=== PATIENT | female | born 1990 | race Caucasian/White ===

== ENCOUNTER 2017-02-22 13:14 | Outpatient (CLI) | payer OTHER ==
[~2017-02-22] VITALS: Ht 172.7 cm; Wt 103.8 kg
[~2017-02-22 13:14] MED LIST: FERR325C PO; PREN1TAB49 PO
[2017-02-22] MEDS ORDERED: FAMO20TA18 PO (13:45)
[2017-02-22 13:47] VITALS: BP 121/69; PULSE 90; RESP 18
--- NOTE | 2017-02-22 15:16 | RADRPT ---
PROCEDURE: US biophysical profile. CLINICAL INDICATION: Small for gestational age. TECHNIQUE: Multiple sonographic images of the uterus were obtained. The images were revi ewed on a PACS workstation. COMPARISON: No prior studies are available for comparison. FINDINGS: There is a single live intrauterine gestation. heart rate is 137 beats per minute. The position is cephalic. The placenta is anterior left grade II with no abruption or previa. The ALEJANDRA is 10.3 cm. (Normal = 5-20 cm.) Breathing Movement: 2 Gross Body Movement: 2 Tone: 2 Qualitative Amniotic Fluid Volume: 2 TOTAL: 8 IMPRESSION: 1. The biophysical score is 8/8. RPTAT: QQ .Iban Clemens MD, MD Date Time Electronically viewed and signed by .Iban Clemens MD, on 02/22/2017 15:16 .R/
--- NOTE | 2017-02-22 17:10 | CONS ---
Date/Time of Note Date/Time of Note DATE: 02/22/17 TIME: 17:05 Consultation Date/Type/Reason Admit Date/Time February 22, 2017 OB triage consult Reason for Consultation This patient is a 26 years old 4 para 3 old 3 deliveries by section. Her estimated date of confinement is 03/12/2017 which makes her 37 weeks and 3 days. She came to triage for possible intrauterine growth retardation and for evaluation of the condition of the fetus by NST and biophysical profile. On examining here she is a well-developed well-nourished patient. Her general vital signs are within normal limits with blood pressure 121/69, pulse rate of 70, respiration 15, temperature 97.8, and oxygen saturation at room temperature of 96%. Constitutional: chills, diaphoresis, disoriented, febrile, improved, no complaints, other, poor po, requiring IVF, requiring O2 Eyes: discharge, no complaints, other, pain, redness, visual change ENT: bleeding, congestion, discharge, dysphagia, no complaints, other, pain, sore throat Respiratory: cough, no complaints, other, pain, pleuritic pain, shortness of breath, sputum, wheezing Cardiovascular: chest pain, edema, lightheadedness, no complaints, orthopenea, other, palpitations, paroxysmal nocturnal dyspnea Gastrointestinal: blood, constipation, decreased appetite, diarrhea, flatus, nausea, no complaints, other, pain, passing stool, vomiting Genitourinary: bleeding, discharge, dysuria, flank pain, hematuria, no complaints, other (Pelvic exam was not performed because she did not have any contractions) Musculoskeletal: No back pain, No bone/joint pain, No neck pain, No no complaints, No other, No restricted range of motion, No swelling Skin: No bruising, No erythema, No laceration, No no complaints, No other, No pruritis, No rash, No skin lesions Neurologic: other (Knee-jerk reflexes are normal), No confusion, No dizziness, No focal-weakness, No headache, No no complaints , No seizure, No syncope Endocrine: No dry skin, No no complaints, No other, No polydypsia, No polyuria , No temp intolerance Lymphatic: No adenopathy, No lymphadema, No no complaints, No other, No tender nodes Additional Comments On ultrasound study the report is a single live intrauterine gestation with heart rate 137 bpm in vertex presentation placenta was anterior ,amniotic fluid index was reported 10.3 cm ,the biophysical profile was 8/8. With these positive finding patient was discharged home and she will undergo section soon Social History Smoking Status: Never smoker Exam/Review of Systems Vital Signs Vitals Vital Signs Date Time Temp Pulse Resp B/P Pulse Ox O2 Delivery O2 Flow Rate FiO2 02/22/17 13:47 97.8 90 18 121/69 96 Room Air AGUSTO SALGUERO MD Feb 22, 2017 17:10 AGUSTO SALGUERO MD Feb 22, 2017 17:10
--- NOTE | 2017-02-22 17:31 | TRIAGE ---
OB Triage Datetime Report Generated by CPN: 02/22/2017 17:30 Datetime: 02/22/2017 16:40 Labor Evaluation Frequency: 0 Monitor Mode: External Pattern: Normal: <= 5 Contractions in 10 Minutes Resting Tone [place]: Relaxed Heart Rate FHR Baseline Rate: 135 Monitor Mode: External US FHR Baseline Changes: No Baseline Change Variability: Moderate 6-25 bpm Accelerations: 15X15 Decelerations: None Category: Category I Datetime: 02/22/2017 15:44 Labor Evaluation Frequency: x2 Monitor Mode: External Duration (sec)2399: 40-70 Quality: Mild Pattern: Normal: <= 5 Contractions in 10 Minutes Resting Tone [place]: Relaxed Contraction Comments: PT DOES NOT FEEL CTX Heart Rate FHR Baseline Rate: 135 Monitor Mode: External US FHR Baseline Changes: No Baseline Change Variability: Moderate 6-25 bpm Accelerations: 15X15 Decelerations: None Category: Category I Datetime: 02/22/2017 14:38 Maternal Assessment Level of Consciousness: Fully Conscious Headache: Denies Blurred Vision: No Nausea/Vomiting: Denies RUQ Epigastric Pain: Denies Facial Edema: None Labor Evaluation Frequency: x3 Monitor Mode: External Duration (sec)2399: 50-70 Quality: Mild Pattern: Normal: <= 5 Contractions in 10 Minutes Resting Tone [place]: Relaxed Heart Rate FHR Baseline Rate: 140 Monitor Mode: External US FHR Baseline Changes: No Baseline Change Variability: Moderate 6-25 bpm Accelerations: 15X15 Decelerations: Variable Comments: Vx1 Pain Assessment Pain Scale: 0 Pain Presence: None/Denies Pain Type: N/A Datetime: 02/22/2017 13:42 Time of Arrival: 02/22/2017 13:10 EGA: 37.3 Arrived By: Ambulatory Arrived From: Dr. Mcrae Chief Complaint: IUGR - ORDERS FOR NST/BPP Movement: Present Contractions: Denies/Absent Rupture of Membranes: Denies Vaginal Bleeding: None Vaginal Discharge: Denies Recent Sexual Intercouse: Denies Abdominal Trauma: Not Applicable Patient Complaints: Other Time Provider Notified: 02/22/2017 16:30 Provider Notified: DR. GUEVARA Initial Plan: EFM x2, BPP Datetime: 02/22/2017 13:38 Stage of : OB Triage Assessment Type: Triage Maternal Assessment Level of Consciousness: Fully Conscious Headache: Denies Blurred Vision: No Respiratory Effort: Unlabored; Regular Rhythm; Equal Expansion Breath Sounds, Left: Clear and Equal Breath Sounds, Right: Clear and Equal Nausea/Vomiting: Denies RUQ Epigastric Pain: Denies Lower Extremities Edema: Bilateral Lower Extremities Degree: 1+ Upper Extremities Edema: None Degree: None Facial Edema: None Temperature Route: Oral Fall Risk Assessment History of Falling: (0) No Secondary Diagnosis: (0) No Ambulatory Aid: (0) Bedrest/Nurse Assist IV Therapy: (0) No Gait: (0) Normal/Bedrest/Immobile Mental Status: (0) Oriented to Own Ability Fall Score: 0 Fall Risk Score Definition: No Risk: No action required Pain Assessment Pain Scale: 0 Pain Presence: None/Denies Pain Type: N/A
== END 2017-02-22 17:00 | disposition home or self-care (01) ==
LOC: OBT 13:14 → L-D 13:17 → OBT 17:00
PROVIDERS: ATTEND Obstetrics & Gynecology
DX: O41.93X0 Disorder of amniotic fluid and membranes, unspecified, third trimester, not applicable or unspecified (principal); O34.219 Maternal care for unspecified type scar from previous cesarean delivery; Z3A.37 37 weeks gestation of pregnancy
CPT/HCPCS: 76818; Z7500; G0463

== ENCOUNTER 2017-02-23 15:02 | Inpatient (IN) | payer OTHER ==
[~2017-02-23] VITALS: Ht 167.6 cm; Wt 109.9 kg
[~2017-02-23 15:02] MED LIST changes: +FAMO20TA18 PO
[2017-02-23] MEDS ORDERED: METHYLERGONOVINE 0.2 MG INJ IM PRN (15:30)
[2017-02-23] MEDS ORDERED: MISOPROSTOL 200 MCG TAB PR PRN (15:30)
[2017-02-23] MEDS ORDERED: CARBOPROST 250 MCG INJ IM PRN (15:30)
[2017-02-23] MEDS ORDERED: OXYTOCIN 30 UNITS/LR 500 ML IV SCH (15:30)
[2017-02-23] MEDS ORDERED: OXYTOCIN 30 UNITS/LR 500 ML IV PRN (15:30)
[2017-02-23] MEDS ORDERED: CEFAZOLIN 2 GM/50 ML (PMX) 50 ML IV SCH (15:30)
[2017-02-23 15:50] VITALS: Ht 167.6 cm; Wt 109.9 kg
[2017-02-23 15:51] VITALS: BP 125/74; PULSE 78; RESP 17
[2017-02-23 15:53] LABS: BASOPHILS % 0.3 % (0.0-2.0); EOSINOPHILS # 0.1 10^3/ul (0.0-0.5); EOSINOPHILS % 0.8 % (0.0-7.0); HEMATOCRIT 38.5 % (37.0-47.0); HEMOGLOBIN 13.3 g/dl (12.0-16.0); LYMPHOCYTES # 2.6 10^3/ul (0.8-2.9); LYMPHOCYTES % 23.2 % (15.0-51.0); MEAN CORPUSCULAR HEMOGLOBIN 28.4 pg (29.0-33.0); MEAN CORPUSCULAR HGB CONC 34.5 g/dl (32.0-37.0); MEAN CORPUSCULAR VOLUME 82.1 fl (82.0-101.0); MEAN PLATELET VOLUME 10.5 fl (7.4-10.4); MONOCYTE # 0.9 10^3/ul (0.3-0.9); MONOCYTES % 7.6 % (0.0-11.0); NEUTROPHIL # 7.6 10^3/ul (1.6-7.5); NEUTROPHILS % 67.5 % (39.0-77.0); PLATELET COUNT 320 10^3/UL (140-415); RED BLOOD COUNT 4.69 10^6/ul (4.20-5.40); RED CELL DISTRIBUTION WIDTH 13.3 % (11.5-14.5); WHITE BLOOD COUNT 11.3 10^3/ul (4.8-10.8)
[2017-02-23 16:14] LABS: INR 0.94; PROTIME 12.6 Sec (12.2-14.2)
[2017-02-23] MEDS: LACTATED RINGER'S 1,000 ML IV SCH ×2 (16:39→17:28)
[2017-02-23 16:47] LABS: PARTIAL THROMBOPLASTIN TIME 31.8 Sec (25.0-35.0)
[2017-02-23] MEDS ORDERED: LACTATED RINGER'S 1,000 ML IV ONE (17:05)
[2017-02-23] MEDS ORDERED: FAMOTIDINE 20 MG INJ IV ONE (17:30)
[2017-02-23] MEDS ORDERED: CITRIC ACID/NA CITRATE 30 ML CUP PO ONE (17:30)
[2017-02-23] MEDS ORDERED: METOCLOPRAMIDE 10 MG INJ IV ONE (17:30)
[2017-02-24] MEDS: LACTATED RINGER'S 1,000 ML IV SCH ×4 (02:07→22:19)
[2017-02-24] MEDS ORDERED: morphine SULFATE/PF (10 MG/10 ML) INJ ONE (14:24)
[2017-02-24] MEDS ORDERED: FENTAnyl 50 MCG/ML VIAL ONE (14:24)
[2017-02-24] MEDS ORDERED: PHENYLephrine (100 MCG/ML) 5ML SYG ONE ×2 (14:24→14:48)
[2017-02-24] MEDS ORDERED: DEXAMETHASONE 4 MG/ML 1 ML INJ ONE (14:37)
[2017-02-24] MEDS ORDERED: ONDANSETRON 4 MG INJ ONE (14:37)
--- NOTE | 2017-02-24 16:00 | HP ---
Date/Time of Note Date/Time of Note Late entry DATE: 02/23/17 OB - History Hx of Present Free Text/Dictation Admitted at 37+ weeks for repeat . Perinatologist recommendation because of abdominal circumference less than 3rd percentile Last Menstrual Period: Jun 05, 2016 Estimated Due Date: Mar 12, 2017 : 4 Para: 3 Care: Good Care Ultrasounds: Normal mid trimester US Obstetrical Complications: Growth Restriction Medical Complications: None, Other (Previous 3) Past Family/Social History * Past Medical, Surgical, Family and Obstetric Histories reviewed from chart. Blood Type: O+ Rubella: immune RPR/VDRL: Negative GBS Status: Negative HBsAG: Negative OB Admission Exam Vital Signs Vital Signs Vital Signs Date Time Temp Pulse Resp B/P Pulse Ox O2 Delivery O2 Flow Rate FiO2 02/23/17 15:51 98.1 78 17 125/74 Room Air Physical Exam HEENT: WNL Heart: Rhythm Normal Lungs: Clear, Equal Abdomen: WNL Extremities: Normal Reflexes: Normal Cervical Dilatation: None Effacement: 0% Station: -3 Membranes: Intact Heart Rate: 140's Decelerations: No Decelerations Varibility: Marked Contractions on Admission: None Last 72 hours Lab Results CBC & BMP 02/23/17 15:30 OB Assessment/Plan Reason for admission: section Other Assessment: 37+ weeks gestation Previous 3 Perinatologist recommended delivery Other plan: Repeat BRUNO ARSHAD MD Feb 24, 2017 16:00
--- NOTE | 2017-02-24 16:03 | OPR ---
Operative Report Planned Procedure Procedure date Feb 24, 2017 Procedure(s) Repeat section Performed by: BRUNO ARSHAD MD Assisting provider: MARLA VILLELA MD Anesthesiologist: SVITLANA BARRETO DO Pre-procedure diagnosis 37+ weeks gestation previous 3 Growth restricted infant Anesthesia Type: spinal Procedure Description Under satisfactory anaesthesia a Pfannenstiel incision was made two fingerbreadth above and parallel to the symphysis of pubis around the previous scar and previous scar was removed Incision was extended laterally to the border of the Recti muscles on either sides. Incision was carried down with sharp and blunt dissection until fascia was reached. Anterior Recti muscle fascia was incised in mid portion and incision extended laterally to the border of skin incision. Fascia was mobilized from muscle superiorly and Recti muscles were from midline using sharp and blunt dissection. Peritoneum was visualized; Avoiding bowel and bladder it was incised . Incision was extended superiorly and inferiorly. Bladder blade was placed. Posterior peritoneum covering the lower segment of the uterus and lower segment of the uterus were incised.Low transverse uterine incision was made on lower segment of the uterus. Incision extended laterally to the border of Round Lig. on either sides and baby was delivered from OT. position . Amniotic fluid appeared clear. Cord blood was obtained and cord had 3 vessels . Placenta was delivered spontaneously and appeared intact and complete. Intrauterine cavity was rubbed with a laparotomy sponge. Uterine incision was closed in 2 layers using running stitches of No1 Monocryl. Hemostasis appeared secure. Ovaries and Fallopian tubes were within normal limits. Announcing needle, lap sponge and instrument count to be correct abdomen was closed in layers as follows: Peritoneum and Recti muscles with running stitches of 20 Vicryl. Fascia with running stitch of No 1 PDS. Subcutaneous tissue with running stitches of 20 Chromic and skin was closed using carolyn. Patient tolerated the procedure well and was transferred to [facility] in good condition. Post-Procedure Post-procedure diagnosis Status post Findings: Live Baby Window on the lower uterine segment extending from left side to middle of the uterine incision prior to performing uterine incision Specimen removed: No Complications: None Pt Condition post procedure: stable Disposition: PACU Physician Certification I, the undersigned physician, hereby certify that I have discussed the procedure described in this consent form with this patient (or the patient's legal public relations representative), including: * The risk and benefits of the procedure; * Any adverse reactions that may reasonably be expected to occur; * Any alternative efficacious methods of treatment which may be medically viable ; * The potential problems that may occur during recuperation; * Potential for blood transfusion and associated risks/benefits; and * Any research or economic interest I may have regarding this treatment. I further certify that the patient/legally responsible person was encouraged to ask question and that all questions were answered. BRUNO ARSHAD MD Feb 24, 2017 16:03
[2017-02-24] MEDS ORDERED: HYDROmorphONE 1 MG/ML SYG IV PRN ×2 (16:30)
[2017-02-24] MEDS ORDERED: TRIMETHOBENZAMIDE 100 MG/ML VIAL IM PRN (16:30)
[2017-02-24] MEDS ORDERED: NALOXONE (0.4 MG/ML) INJ IV PRN (16:30)
[2017-02-24] MEDS ORDERED: ZOLPIDEM 5 MG TAB PO PRN (16:30)
[2017-02-24] MEDS ORDERED: NALBUPHINE HCL (10 MG/1 ML) INJ IV PRN (16:30)
[2017-02-24] MEDS ORDERED: ONDANSETRON 4 MG INJ IV PRN (16:30)
[2017-02-24] MEDS ORDERED: DIPHENHYDRAMINE 50 MG INJ IV PRN (16:30)
[2017-02-24] MEDS: KETOROLAC 30 MG INJ IV PRN (18:02)
[2017-02-24 18:25] VITALS: BP 135/80; PULSE 68; RESP 18
[2017-02-24] MEDS ORDERED: CARBOPROST 250 MCG INJ IM PRN (18:30)
[2017-02-24] MEDS ORDERED: OXYTOCIN 30 UNITS/LR 500 ML IV PRN (18:30)
[2017-02-24] MEDS ORDERED: MISOPROSTOL 200 MCG TAB PR PRN (18:30)
[2017-02-24] MEDS ORDERED: METHYLERGONOVINE 0.2 MG INJ IM PRN (18:30)
[2017-02-24] MEDS ORDERED: NA PHOSPHATE/BIPHOS 133 ML ENEMA PR PRN (18:30)
[2017-02-24] MEDS ORDERED: ACETAMINOPHEN/CODEINE #3 TAB PO PRN (18:30)
[2017-02-24] MEDS ORDERED: LANOLIN 7 GM TUBE TOP PRN (18:30)
[2017-02-24 20:00] VITALS: BP 120/66; PULSE 72; RESP 18
[2017-02-24] MEDS: SENNA/DOCUSATE NA (8.6MG/50MG) TAB PO SCH (21:00)
[2017-02-24] MEDS: CEFAZOLIN 2 GM/50 ML (PMX) 50 ML IV SCH (22:18)
[2017-02-25] VITALS: BP 113/58; PULSE 74; RESP 18
[2017-02-25 04:00] VITALS: BP 109/55; PULSE 68; RESP 17
[2017-02-25] MEDS: CEFAZOLIN 2 GM/50 ML (PMX) 50 ML IV SCH ×2 (06:34→14:28)
[2017-02-25] MEDS: LACTATED RINGER'S 1,000 ML IV SCH (06:35)
[2017-02-25 08:00] VITALS: BP 112/54; PULSE 72; RESP 16
[2017-02-25 08:43] LABS: BASOPHILS % 0.1 % (0.0-2.0); EOSINOPHILS % 0.2 % (0.0-7.0); HEMATOCRIT 29.9 % (37.0-47.0); HEMOGLOBIN 9.8 g/dl (12.0-16.0); LYMPHOCYTES # 2.7 10^3/ul (0.8-2.9); LYMPHOCYTES % 19.7 % (15.0-51.0); MEAN CORPUSCULAR HEMOGLOBIN 26.8 pg (29.0-33.0); MEAN CORPUSCULAR HGB CONC 32.8 g/dl (32.0-37.0); MEAN CORPUSCULAR VOLUME 81.9 fl (82.0-101.0); MEAN PLATELET VOLUME 10.9 fl (7.4-10.4); MONOCYTE # 1.4 10^3/ul (0.3-0.9); MONOCYTES % 10.4 % (0.0-11.0); NEUTROPHIL # 9.3 10^3/ul (1.6-7.5); NEUTROPHILS % 68.9 % (39.0-77.0); PLATELET COUNT 268 10^3/UL (140-415); RED BLOOD COUNT 3.65 10^6/ul (4.20-5.40); RED CELL DISTRIBUTION WIDTH 13.2 % (11.5-14.5); WHITE BLOOD COUNT 13.5 10^3/ul (4.8-10.8)
[2017-02-25] MEDS: SENNA/DOCUSATE NA (8.6MG/50MG) TAB PO SCH ×2 (09:33→21:38)
[2017-02-25] MEDS: KETOROLAC 30 MG INJ IV PRN (09:33)
[2017-02-25] MEDS ORDERED: BISACODYL 10 MG SUPP PR ONE (10:30)
[2017-02-25 12:00] VITALS: BP 111/66; PULSE 79; RESP 18
--- NOTE | 2017-02-25 12:14 | PN ---
Date/Time of Note Date/Time of Note DATE: 02/25/17 TIME: 12:13 Assessment/Plan VTE Prophylaxis VTE Prophylaxis Intervention: ambulation Lines/Catheters IV Catheter Type (from Nrsg): Peripheral IV Assessment/Plan Assessment/Plan Status post repeat Postop day 1 We will continue to advance diet and ambulate Monitor vital signs Subjective 24 Hr Interval Summary No bowel movement Passing flatus Constitutional: BM, ambulates, flatus, improved, no complaints, urine output Pain Control: well controlled Exam/Review of Systems Vital Signs Vitals Vital Signs Date Time Temp Pulse Resp B/P Pulse Ox O2 Delivery O2 Flow Rate FiO2 02/25/17 08:00 98.3 72 16 112/54 Room Air 02/25/17 03:51 97 21 Intake and Output 02/24/17 02/24/17 02/25/17 15:00 23:00 07:00 Intake Total 750 ml 1500 ml Output Total 600 ml 1050 ml 900 ml Balance 150 ml 450 ml -900 ml Exam Free Text/Dictation Abdomen soft bowel sounds present Incision is covered Constitutional: alert, oriented, well developed Psych: nl mood/affect, no complaints Head: atraumatic, normocephalic Eyes: EOMI, nl conjunctiva, nl lids, nl sclera ENMT: mucosa pink and moist, nl external ears & nose, nl lips & teeth, nl nasal mucosa & septum Neck: non-tender, supple Respiratory: clear to auscultation, normal air movement Cardiovascular: nl pulses, regular rate and rhythm Gastrointestinal: nl liver, spleen, non-tender, soft Musculoskeletal: nl extremities to inspection, nl gait and stance Extremities: normal pulses Neurological: STAMP REDEMPTION CLERK II-XII intact, nl mental status, nl speech, nl strength Skin: nl turgor, rash or lesions Lymph: nl lymph nodes Results Result Diagram: 02/25/17 0755 BRUNO ARSHAD MD Feb 25, 2017 12:14
[2017-02-25] MEDS: CLINDAMYCIN 300 MG CAP PO SCH ×3 (13:05→23:01)
[2017-02-25 17:30] VITALS: BP 105/60; PULSE 73; RESP 18
[2017-02-25 20:00] VITALS: BP 96/63; PULSE 77; RESP 18
[2017-02-25] MEDS: IBUPROFEN 800 MG TAB PO SCH (21:38)
[2017-02-25] MEDS: OXYCODONE/ACETAMINOPHEN (5/325) TAB PO PRN (23:01)
[2017-02-26 04:00] VITALS: BP 93/54; PULSE 78; RESP 18
[2017-02-26] MEDS: IBUPROFEN 800 MG TAB PO SCH ×3 (05:31→22:26)
[2017-02-26] MEDS: CLINDAMYCIN 300 MG CAP PO SCH ×3 (05:31→18:13)
[2017-02-26 07:50] VITALS: BP_SYST 112; BP_SYST 69; BP_DIAS 52; PULSE 69; RESP 20
[2017-02-26] MEDS: SENNA/DOCUSATE NA (8.6MG/50MG) TAB PO SCH ×2 (09:00→21:00)
[2017-02-26] MEDS: OXYCODONE/ACETAMINOPHEN (5/325) TAB PO PRN (11:49)
[2017-02-26 16:00] VITALS: BP 116/78; PULSE 78; RESP 18
--- NOTE | 2017-02-26 17:25 | DS ---
Date/Time of Note Date/Time of Note Home next day DATE: 02/26/17 TIME: 17:24 Obstetrical Discharge Record Final Diagnosis Final Diagnosis: Term delivered Other Final Diagnosis Status post Section Section: Repeat Condition on Discharge Physical Assessment Last Vitals: See nurse's notes Voiding: Yes Bowel Movement: Yes Breast: Soft, non-tender, Filling Fundus: Firm Abdomen and Incision: Soft bowel sounds positive Incision is healing well Episiotomy: Not applicable Calf Tenderness: No Patient Condition: Good BRUNO ARSHAD MD Feb 26, 2017 17:25
--- NOTE | 2017-02-26 17:27 | DS ---
Date/Time of Note Date/Time of Note Home next day DATE: 02/26/17 TIME: 17:25 Discharge Summary Admission/Discharge Info Admit Date/Time Feb 23, 2017 at 15:02 Discharge Date/Time February 27, 2017 Discharge Diagnosis Status post Patient Condition: Good Procedures Repeat Hx of Present Illness 26-year-old female underwent repeat Hospital Course Uncomplicated Home Meds Reported Medications Famotidine* (Famotidine*) 20 Mg Tablet, 20 MG PO Q6, #60 TAB 02/22/17 Vits W-Ca,Fe,Fa(<1MG) () 1 Tab Tablet, 1 TAB PO DAILY 05/18/11 Ferrous Sulfate (Iron) 325 Mg Capsr, 325 MG PO DAILY 05/18/11 Follow-up Plan To clinic in 2 days for staple removal Pelvic rest and no heart activity for 2 months Continue taking pain medications Primary Care Provider Chris Cartwright MD Time spent on discharge: < 30 minutes BRUNO ARSHAD MD Feb 26, 2017 17:27
[2017-02-26] MEDS ORDERED: IBUP800T25 PO (17:28)
--- NOTE | 2017-02-26 17:28 | PD.PPDC ---
[facility] Discharge Instruction Provider Information Physician Information 26-year-old female had repeat Diagnosis Final Diagnosis: Status post Condition Patient Condition: Good Diet Diet: Resume Regular Diet Activity/Restrictions Activity: December Shower Restrictions: No Exercising No Lifting Nothing in the Vagina Return to Work or School: Apr 30, 2017 Wound/Drain Care Instructions Wound/Drain Care Instructions: Keep clean and dry Follow-up Follow-up with Physician: 2, 3, Day/Days (In clinic for staple removal) Return to clinic for IT LEAD Instructions: Fever greater than 101 Chills OB Instructions: Breast Tenderness Depression Surgical Instructions: Incisional Drainage Incisional Redness BRUNO ARSHAD MD Feb 26, 2017 17:28
[2017-02-26 20:00] VITALS: BP 115/67; PULSE 85; RESP 18
[2017-02-27 04:00] VITALS: BP 117/66; PULSE 73; RESP 18
[2017-02-27] MEDS: CLINDAMYCIN 300 MG CAP PO SCH ×3 (06:28→12:02)
[2017-02-27] MEDS: IBUPROFEN 800 MG TAB PO SCH ×2 (06:28→14:07)
[2017-02-27 08:35] VITALS: BP 104/65; PULSE 81; RESP 20
[2017-02-27] MEDS ORDERED: DIPHTH/TET/ACEL PERTUSS (ADULT) 0.5 ML VIAL IM* ONE (09:00)
[2017-02-27] MEDS: SENNA/DOCUSATE NA (8.6MG/50MG) TAB PO SCH (09:00)
[2017-02-27] MEDS ORDERED: MEASLES,MUMPS,RUBELLA VACCINE INJ SC* ONE (09:00)
[2017-02-27] MEDS: OXYCODONE/ACETAMINOPHEN (5/325) TAB PO PRN (12:02)
== END 2017-02-27 16:15 | disposition home or self-care (01) | DRG 765 ==
LOC: L-D 15:02 → PP1 02-24 18:50
PROVIDERS: ADMIT Obstetrics & Gynecology; ATTEND Obstetrics & Gynecology
PROC: 10D00Z1 Extraction of Products of Conception, Low, Open Approach (ICD-10-PCS; principal; 2017-02-24)
DX: O34.211 Maternal care for low transverse scar from previous cesarean delivery (principal); O36.5930 Maternal care for other known or suspected poor fetal growth, third trimester, not applicable or unspecified; Z3A.37 37 weeks gestation of pregnancy; Z37.0 Single live birth
CPT/HCPCS: 85025; 85610; 85730; 86592; 86850; 86900; 86901; 86920; 87340; 90715; 94760; 99464; J0690; J1100; J1170; J1200; J1885; J2210; J2274; J2370; J2405; J2590; J2765; J3010; J7120

== ENCOUNTER 2017-07-19 16:25 | Emergency (ER) | payer OTHER ==
[~2017-07-19] VITALS: Ht 157.5 cm; Wt 102.7 kg
[~2017-07-19 16:25] MED LIST changes: +IBUP800T25 PO
[2017-07-19 16:28] VITALS: Ht 157.5 cm; Wt 102.7 kg
[2017-07-19] MEDS ORDERED: ONDANSETRON 4 MG INJ IV STA (16:53)
--- NOTE | 2017-07-19 16:53 | ERD ---
ER Documentation Chief Complaint Chief Complaint rt. abdominal pain rad to back with NN/V, started this AM. 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 vomited x5 denies diarrhea. ROS All systems reviewed and are negative except as per history of present illness. Medications Home Meds Active Scripts Ibuprofen* (Ibuprofen*) 800 Mg Tablet, 800 MG PO Q8, #30 TAB 0 Refills Prov:BRUNO ARSHAD MD 02/26/17 Reported Medications Famotidine* (Famotidine*) 20 Mg Tablet, 20 MG PO Q6, #60 TAB 02/22/17 Vits W-Ca,Fe,Fa(<1MG) () 1 Tab Tablet, 1 TAB PO DAILY 05/18/11 Ferrous Sulfate (Iron) 325 Mg Capsr, 325 MG PO DAILY 05/18/11 Allergies Allergies: Coded Allergies: No Known Allergy (Verified , 02/23/17) Physical Exam Vitals Vital Signs Date Time Temp Pulse Resp B/P Pulse Ox O2 Delivery O2 Flow Rate FiO2 07/19/17 16:28 100.3 94 20 139/76 98 Physical Exam Const: Well-nourished, well-appearing, well-hydrated 26-year-old female obvious discomfort, no acute distress Eyes: Normal Conjunctiva, PERRLA, EOMI ENT: Normal External Ears, Nose and Mouth. Mucous membranes moist Resp: Clear to auscultation bilaterally Cardio: Regular rate and rhythm, no murmurs Abd: Soft, non tender, epigastric tenderness Back: No midline or flank tenderness Neur: Awake and alert Psych: Normal Mood and Affect Result Diagram: 07/19/17211807/19/172118 Results 24 hrs Laboratory Tests Test 07/19/17 19:45 07/19/17 21:19 Bedside Urine pH (LAB) 6.0 Bedside Urine Protein (LAB) Negative Bedside Urine Glucose (UA) Negative Bedside Urine Ketones (LAB) Negative Bedside Urine Blood Trace-lysed Bedside Urine Nitrite (LAB) Negative Bedside Urine Leukocyte Esterase (L Negative White Blood Count 7.810^3/ul Red Blood Count 4.3710^6/ul Hemoglobin 11.8g/dl Hematocrit 35.1% Mean Corpuscular Volume 80.3fl Mean Corpuscular Hemoglobin 27.0pg Mean Corpuscular Hemoglobin Concent 33.6g/dl Red Cell Distribution Width 13.4% Platelet Count 06714^3/UL Mean Platelet Volume 10.5fl Neutrophils % 69.7% Lymphocytes % 20.0% Monocytes % 7.9% Eosinophils % 1.8% Basophils % 0.3% Nucleated Red Blood Cells % 0.0/100WBC Neutrophils # 5.510^3/ul Lymphocytes # 1.610^3/ul Monocytes # 0.610^3/ul Eosinophils # 0.110^3/ul Basophils # 0.010^3/ul Nucleated Red Blood Cells # 0.010^3/ul Sodium Level 139mmol/L Potassium Level 3.9mmol/L Chloride Level 108mmol/L Carbon Dioxide Level 24mmol/L Anion Gap 11 Blood Urea Nitrogen 8mg/dl Creatinine 0.61mg/dl Glucose Level 84mg/dl Calcium Level 7.8mg/dl Total Bilirubin 0.8mg/dl Direct Bilirubin 0.00mg/dl Indirect Bilirubin 0.8mg/dl Aspartate Amino Transf (AST/SGOT) 19IU/L Alanine Aminotransferase (ALT/SGPT) 36IU/L Alkaline Phosphatase 105IU/L Total Protein 6.1g/dl Albumin 3.2g/dl Globulin 2.90g/dl Albumin/Globulin Ratio 1.10 Lipase 59U/L Current Medications Medications (Trade) Dose Ordered Sig/Tiff Route PRN Reason Start Time Stop Time Status Last Admin Dose Admin Sodium Chloride (NS) 1,000 ml @ 1,000 mls/hr Q1H ONCE IV 07/19/17 17:00 07/19/17 17:59 DC 07/19/17 17:29 Ondansetron HCl (Zofran Inj) 4 mg ONCE STAT IV 07/19/17 16:53 07/19/17 16:55 DC 07/19/17 17:29 Pantoprazole (Protonix Iv) 40 mg ONCE ONCE IV 07/19/17 17:00 07/19/17 17:01 DC 07/19/17 17:29 Acetaminophen 650 mg 650 mg ONCE ONCE PO 07/19/17 17:00 07/19/17 17:01 DC 07/19/17 17:29 Sodium Chloride (NS) 1,000 ml @ 1,000 mls/hr Q1H ONCE IV 07/19/17 20:00 07/19/17 20:59 DC 07/19/17 20:26 Ketorolac Tromethamine (Toradol) 15 mg ONCE STAT IV 07/19/17 19:41 07/19/17 19:44 DC 07/19/17 20:12 WBC pending, CMP shows no evidence of electrolyte imbalance, renal insufficiency, Urinalysis negative for evidence of infection Procedures/MDM PROCEDURE: US Abdomen Limited . CLINICAL INDICATION: Abdominal pain TECHNIQUE: Multiple color flow, Doppler and gupta scale ultrasound images were acquired of the patient's right upper quadrant abdomen utilizing a high resolution transducer. COMPARISON: None FINDINGS: The liver measures 16.6 cm and demonstrates a coarsened echogenicity. The gallbladder has been removed. The common bile duct measures 3.1 mm in diameter. The pancreas is not well visualized. Antegrade flow is seen in the portal vein. Right kidney measures 10.7 cm. Right kidney demonstrates a normal echogenicity. No hydronephrosis, masses or stones are noted. IMPRESSION: Diffuse fatty infiltration of the liver. Status post cholecystectomy. Pancreas not well visualized. If characterization of this structure is needed repeat exam or CT/MRI is recommended. 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 Emergency room course includes history and physical exam, I have low suspicion for appendicitis, cholecystitis , or cholelithiasis, plan to treat with 1 L of normal saline, 40 mg Protonix IV , 4 mg IV Zofran, p.o. Tylenol, and a fluid challenge. Patient reassessed after interventions complete, patient continues to vomit, reports intermittent stabbing pain in her right upper quadrant, patient will now receive diagnostic lab draw, CBC, CMP, lipase, another liter of normal saline, IV Toradol, and a right upper quadrant ultrasound, ultrasound findings include cholecystectomy, diffuse fatty infiltration of the liver, pancreas not well visualized. Laboratory testing shows no evidence of electrolyte imbalance, renal insufficiency, or urinary tract infection, CBC for evidence of hemorrhage, or acute infection, lipase negative for hepatitis or pancreatitis. To discharge patient home with Zofran, and Zantac 150 mg twice daily 15 days follow-up with primary care physician, return to emergency department for worsening of current symptoms. I discussed plan with patient, she is anxious to go home and has been here several hours. She reports feeling better, is no longer nauseated, denies abdominal pain, back pain, is tolerating water prior to discharge. Patient is stable with no new complaints during ER course, clinically there is no current evidence to suggest meningitis, sepsis, acute abdomen, acute coronary syndromes, pulmonary embolism or any other emergent condition appearing to require further evaluation or hospitalization. I feel the patient is stable for discharge at this time. I have discussed results, examination findings, the treatment plan with the patient and family present prior to discharge. Indications for emergent reevaluation, side effects of medication were also discussed. All questions were answered. Patient verbalizes understanding and agrees with plan of care. Departure Diagnosis: Primary Impression: Nausea & vomiting Vomiting type: unspecified Vomiting Intractability: non-intractable Qualified Code: R11.2 - Non-intractable vomiting with nausea, unspecified vomiting type Additional Impression: Abdominal pain Abdominal location: epigastric Qualified Code: R10.13 - Epigastric pain Condition: Good Patient Instructions: Abdominal Pain, Nausea and Vomiting-Adult Additional Instructions: Thank you for for coming to [facility] for your care today. Please ask your nurse or provider if you have questions about your care today and do not leave until all your questions have been answered. Please use any medications given as directed and follow-up with your doctor (or the doctor you were referred to) in the next 2-3 days. If you do not have a primary care doctor you may follow up at the [facility] [place] ([place] You may also use motrin and tylenol as needed for fever and/or pain unless instructed otherwise by your provider or nurse. Indications for more urgent follow-up have been discussed, but you may return to the Emergency Department at ANY time for any worrisome or worsening symptoms. If you have abdominal pain, please know that no test or exam you received is perfect and you should follow up within 8 hours for continued pain. If you had any imaging studies today, such as an X-Ray or CT Scan, these studies will be reviewed later by a radiologist. You will be called if there are important findings that were not identified today, so make sure the contact information you provided at registration is correct. If you received any narcotic pain control medicine today, such as Vicodin, Morphine or Dilaudid, your coordination and judgment may be affected for a number of hours. Please do not drive or operate heavy machinery, and you may want someone to assist you at home. If you were given a prescription for narcotic medication, be aware that it is very addictive- use sparingly and only if necessary. WOLFGANG MCCLURE Jul 19, 2017 16:53
[2017-07-19] MEDS ORDERED: ACETAMINOPHEN 325 MG TAB PO ONE (17:00)
[2017-07-19] MEDS ORDERED: SOD CHLORIDE 0.9% 1,000 ML IV ONE ×2 (17:00→20:00)
[2017-07-19] MEDS ORDERED: PANTOPRAZOLE 40 MG INJ IV ONE (17:00)
[2017-07-19] MEDS ORDERED: KETOROLAC 15 MG INJ IV STA (19:41)
[2017-07-19 19:45] LABS: URINE BLOOD (Dip) POC Trace-lysed (NEGATIVE)
--- NOTE | 2017-07-19 20:29 | RADRPT ---
PROCEDURE: US Abdomen Limited . CLINICAL INDICATION: Abdominal pain TECHNIQUE: Multiple color flow, Doppler and gupta scale ultrasound images were acquired of the teja ent's right upper quadrant abdomen utilizing a high resolution transducer. COMPARISON: None FINDINGS: The liver measures 16.6 cm and demonstrates a coarsened echogenicity. The gallbladder has been remov ed. The common bile duct measures 3.1 mm in diameter. The pancreas is not well visualized. Antegrade flow is seen in the portal vein. Right kidney measures 10.7 cm. Right kidney demonstrates a normal echogenicity. No hydronephrosis, masses or stones are noted. IMPRESSION: Diffuse fatty infiltration of the liver. Status post cholecystectomy. Pancreas not well visualized. If characterization of this structure is needed repeat exam or CT/MRI is recommended. RPTAT: AA .Manjit Ac MD, Date Time Electronically viewed and signed by .Manjit Ac MD, on 07/19/2017 20:29 .P/
[2017-07-19 22:09] LABS: BASOPHILS % 0.3 % (0.0-2.0); EOSINOPHILS # 0.1 10^3/ul (0.0-0.5); EOSINOPHILS % 1.8 % (0.0-7.0); HEMATOCRIT 35.1 % (37.0-47.0); HEMOGLOBIN 11.8 g/dl (12.0-16.0); LYMPHOCYTES # 1.6 10^3/ul (0.8-2.9); MEAN CORPUSCULAR HGB CONC 33.6 g/dl (32.0-37.0); MEAN CORPUSCULAR VOLUME 80.3 fl (82.0-101.0); MEAN PLATELET VOLUME 10.5 fl (7.4-10.4); MONOCYTE # 0.6 10^3/ul (0.3-0.9); MONOCYTES % 7.9 % (0.0-11.0); NEUTROPHIL # 5.5 10^3/ul (1.6-7.5); NEUTROPHILS % 69.7 % (39.0-77.0); PLATELET COUNT 232 10^3/UL (140-415); RED BLOOD COUNT 4.37 10^6/ul (4.20-5.40); RED CELL DISTRIBUTION WIDTH 13.4 % (11.5-14.5); WHITE BLOOD COUNT 7.8 10^3/ul (4.8-10.8)
[2017-07-19 22:31] LABS: ALBUMIN 3.2 g/dl (3.3-4.9); ALBUMIN/GLOBULIN RATIO 1.1; BILIRUBIN,INDIRECT 0.8 mg/dl (0-1.1); BILIRUBIN,TOTAL 0.8 mg/dl (0.2-1.3); CALCIUM 7.8 mg/dl (8.4-10.2); CREATININE 0.61 mg/dl (0.44-1.00); POTASSIUM 3.9 mmol/L (3.5-5.1); TOTAL PROTEIN 6.1 g/dl (6.1-8.1)
[2017-07-19] MEDS ORDERED: RANI150T9 PO (22:42)
[2017-07-19] MEDS ORDERED: ONDA4TAB14 PO (22:42)
[2017-07-19 23:01] VITALS: BP 110/64; PULSE 82; RESP 20; TEMP 98.4
== END 2017-07-19 23:25 | disposition home or self-care (01) ==
LOC: FTE 16:25
DX: R11.2 Nausea with vomiting, unspecified (principal); R10.13 Epigastric pain
CPT/HCPCS: 76705; 80053; 81003; 83690; 85025; 96361; 96374; 96375; C9113; J1885; J2405; J7030; Z7502; Z7610

== ENCOUNTER 2017-11-13 15:39 | Emergency (ER) | END 2017-11-13 19:02 | disposition home or self-care (01) ==

== ENCOUNTER → 2018-12-04 | Emergency (ER) | payer OTHER ==
[~2018-12-04] VITALS: Ht 167.6 cm; Wt 97.0 kg
[~2018-12-04] MED LIST changes: +CYCL10TA7 PO; +IBUP-1542 PO; +IBUP-1544 PO; -IBUP800T25 PO; +KETOROLAC 60 MG INJ IM STA; +NAPR-985 PO; +ONDA4TAB14 PO; +RANI150T35 PO
[2018-12-04 09:11] VITALS: BP 125/83; PULSE 74; RESP 18; Ht 167.6 cm; Wt 97.0 kg
--- NOTE | 2018-12-04 09:43 | ERD ---
ER Documentation Chief Complaint Chief Complaint lower back pain heard a pop this morning HPI 28-year-old female patient with no significant past medical history presents ED complaining of lower back pain that started this morning at 6:30 AM. Patient reports that she was ironing her clothes, while she was sitting, maneuvered and actually heard a popping sensation and now has a 10 out of 10 back pain. Patient describes the pain as throbbing as well as aching. Denies any chest pain, shortness of breath, nausea, vomiting, diarrhea, neck stiffness. ROS All systems reviewed and are negative except as per history of present illness. Medications Home Meds Active Scripts Cyclobenzaprine Hcl* (Cyclobenzaprine Hcl*) 10 Mg Tablet, 10 MG PO TID, #15 TAB Prov:DARRIUS MALONEY PA-C 12/04/18 Naproxen* (Naprosyn*) 500 Mg Tablet, 500 MG PO BID PRN for PAIN AND/OR INFLAMMATION, #30 TAB Prov:DARRIUS MALONEY PA-C 12/04/18 Ibuprofen* (Ibuprofen*) 600 Mg Tablet, 600 MG PO Q6 for 5 Days, TAB Prov:AVERY JACOB 11/13/17 Ranitidine Hcl* (Zantac*) 150 Mg Tablet, 150 MG PO BID PRN for EPIGASTRIC PAIN, #30 TAB Prov:REN,WOLFGANG 07/19/17 Ondansetron (Ondansetron Odt) 4 Mg Tab.rapdis, 4 MG PO Q6H PRN for NAUSEA AND/OR VOMITING, #10 TAB Prov:REN,WOLFGANG 07/19/17 Ibuprofen* (Ibuprofen*) 800 Mg Tablet, 800 MG PO Q8, #30 TAB 0 Refills Prov:BRUNO ARSHAD MD 02/26/17 Reported Medications Famotidine* (Famotidine*) 20 Mg Tablet, 20 MG PO Q6, #60 TAB 02/22/17 Vits W-Ca,Fe,Fa(<1MG) () 1 Tab Tablet, 1 TAB PO DAILY 05/18/11 Ferrous Sulfate (Iron) 325 Mg Capsr, 325 MG PO DAILY 05/18/11 Allergies Allergies: Coded Allergies: No Known Allergy (Verified , 11/13/17) PMhx/Soc History of Surgery: Yes ( x4, gallbladder removed 2015) Anesthesia Reaction: No Hx Neurological Disorder: No Hx Respiratory Disorders: No Hx Cardiac Disorders: No Hx Psychiatric Problems: No Hx Miscellaneous Medical Probl: No Hx Alcohol Use: Yes (occasional) Hx Substance Use: No Hx Tobacco Use: No FmHx Family History: No diabetes, No coronary disease Physical Exam Vitals Vital Signs Date Temp Pulse Resp B/P (MAP) Pulse Ox O2 O2 Flow FiO2 Time Delivery Rate 12/04/18 97.6 74 18 125/83 100 09:11 (97) Physical Exam Const: [id number], well-nourished. In no acute distress. Head: Atraumatic, normocephalic Eyes: Normal Conjunctiva without injection. No purulent discharge. ENT: Normal external ear, nose. Moist oropharynx without tonsillar exudates. Non-erythematous pharynx. Uvula midline. No drooling. No trismus. Neck: No cervical midline tenderness. Full range of motion. No meningismus. No cervical lymphadenopathy. No JVD. Resp: Clear to auscultation bilaterally. No wheezing, rhonchi, rales, or crackles. No accessory muscle use. No retractions. Cardio: Regular rate and rhythm. No murmurs, rubs or gallops. Abd: Soft, nontender, non distended. Normal bowel sounds. No palpable masses. No rebound tenderness. No guarding. Negative McBurney's point. Negative psoas sign. Negative obturator sign. Skin: No petechiae or rashes Back: No midline tenderness. No CVA tenderness. Tenderness to palpation of the lumbar midline spine with no edema, erythema. Limited range of motion with flexion, extension, rotational movements. Ext: No cyanosis, or edema. Neur: Awake and alert. Normal gait. Normal coordination. Psych: Normal Mood and Affect Results 24 hrs Laboratory Tests Test 12/04/18 09:42 POC Beta HCG, Qualitative NEGATIVE Current Medications Medications Dose Sig/Tiff Start Time Status Last (Trade) Ordered Route PRN Stop Time Admin Dose Reason Admin Ketorolac 60 mg ONCE STAT 12/04/18 DC 12/04/18 Tromethamine IM 09:20 12/04/18 09:56 (Toradol) 09:22 Procedures/MDM 28-year-old female patient with no significant past medical history presents ED complaining of lower back pain. Patient is afebrile and nontoxic-appearing. Patient was given Toradol 60 mg IM with improvement of her pain. Lumbar x-ray was ordered to further evaluate patient. IMPRESSION: 1. Unremarkable lumbar spine radiographs. Patient's pain is likely secondary to musculoskeletal pain - patient reports muscles feel stiff. Patient is ambulating here in the ED without difficulty. Denies saddle anesthesia, numbness or tingling, urine or bowel incontinence, weakness. Low suspicion for cauda equina syndrome, cord compression, nephrolithiasis, aortic aneurysm, aortic dissection, epidural abscess, spinal hematoma, malignancy, pyelonephritis, or other emergent conditions. Diagnosis: Injury of back Discharge medications: Naproxen, Flexeril Follow up with primary care physician in 1-2 days for a referral to see an orthopedic physician. Instructed patient to return to the ED sooner for any worsening symptoms. Patient's questions were answered. Patient is hemodynamically stable. Patient understood and agreed with discharge plan. Pat ient discharged stable. Disclaimer: Inadvertent spelling and grammatical errors are likely due to EHR/dictation software use and do not reflect on the overall quality of patient care. Also, please note that the electronic time recorded on this note does not necessarily reflect the actual time of the patient encounter. Departure Diagnosis: Primary Impression: Injury of back Encounter type: initial encounter Qualified Codes: S39.92XA - Unspecified injury of lower back, initial encounter Condition: Stable Patient Instructions: Back Basics: A Healthy Spine, Back Care Tips, Back Sprain/Strain Referrals: ETHAN SHER MD (PCP) [facility] YOU HAVE RECEIVED A MEDICAL SCREENING EXAM AND THE RESULTS INDICATE THAT YOU DO NOT HAVE A CONDITION THAT REQUIRES URGENT TREATMENT IN THE EMERGENCY DEPARTMENT. FURTHER EVALUATION AND TREATMENT OF YOUR CONDITION CAN WAIT UNTIL YOU ARE SEEN IN YOUR DOCTORS OFFICE WITHIN THE NEXT 1-2 DAYS. IT IS YOUR RESPONSIBILITY TO MAKE AN APPOINTMENT FOR FOLOW-UP CARE. IF YOU HAVE A PRIMARY DOCTOR --you should call your primary doctor and schedule an appointment IF YOU DO NOT HAVE A PRIMARY DOCTOR YOU CAN CALL OUR PHYSICIAN REFERRAL HOTLINE AT IF YOU CAN NOT AFFORD TO SEE A PHYSICIAN YOU CAN CHOSE FROM THE FOLLOWING [facility] [address] [facility]. [facility] [address] [facility] [facility] [address] [facility] [address] [facility] [address] [facility]. [facility]. [address] [facility]. [facility] YOU HAVE RECEIVED A MEDICAL SCREENING EXAM AND THE RESULTS INDICATE THAT YOU DO NOT HAVE A CONDITION THAT REQUIRES URGENT TREATMENT IN THE EMERGENCY DEPARTMENT. FURTHER EVALUATION AND TREATMENT OF YOUR CONDITION CAN WAIT UNTIL YOU ARE SEEN IN YOUR DOCTORS OFFICE WITHIN THE NEXT 1-2 DAYS. IT IS YOUR RESPONSIBILITY TO MAKE AN APPOINTMENT FOR FOLOW-UP CARE. IF YOU HAVE A PRIMARY DOCTOR --you should call your primary doctor and schedule and appointment IF YOU DO NOT HAVE A PRIMARY DOCTOR YOU CAN CALL OUR PHYSICIAN REFERRAL HOTLINE AT . IF YOU CAN NOT AFFORD TO SEE A PHYSICIAN YOU CAN CHOSE FROM THE FOLLOWING [facility] INSTITUTIONS: [facility] [address] [place] [address] [facility] [address] [place] [address] [facility] [address] [place] [address] [facility]CIALT[facility] Additional Instructions: Call your primary care doctor TOMORROW for an appointment during the next 2-3 days.See the doctor sooner or return here if your condition worsens before your appointment time. DARRIUS MALONEY PA-C December 04, 2018 09:43
== END | disposition home or self-care (01) ==
LOC: FTE 09:04
DX: S39.92XA Unspecified injury of lower back, initial encounter (principal); X58.XXXA Exposure to other specified factors, initial encounter; Y92.9 Unspecified place or not applicable
CPT/HCPCS: 72100; 81025; 96372; J1885; Z7502